=== PATIENT | male | born 1975 | race Caucasian/White ===

== ENCOUNTER 2020-12-03 13:23 | Inpatient (IN) | payer OTHER ==
[~2020-12-03] VITALS: Ht 170.2 cm; Wt 86.2 kg
[2020-12-03 13:32] VITALS: BP 147/85
[2020-12-03] MEDS ORDERED: COZAAR 25 MG TA25 M1 PO (13:35)
[2020-12-03 14:07] LABS: MCH 32.7 pg (26.0-34.0); MCHC 36.1 g/dL (28.0-37.0); MCV 90.4 fL (80.0-100.0); MPV 7.4 fl. (7.2-11.1); NUCLEATED RBCS 0 /100WBC; RBC 1.91 mil/uL (4.50-6.00); RDW-CV 14.4 % (10.5-14.5)
[2020-12-03 14:09] LABS: URINE BILIRUBIN NEGATIVE (Negative); URINE BLOOD NEGATIVE (Negative); URINE CLARITY CLEAR; URINE COLOR YELLOW; URINE GLUCOSE-RANDOM NEGATIVE (Negative); URINE KETONES NEGATIVE (Negative); URINE LEUKOCYTES-REFLEX NEGATIVE (Negative); URINE NITRITE-REFLEX NEGATIVE (Negative); URINE PROTEIN NEGATIVE (Negative); URINE SPECIFIC GRAVITY >= 1.030 (1.005-1.030); URINE UROBILINOGEN 0.2 E.U./dl (0.2-1.0)
[2020-12-03 14:10] LABS: WBC 1.8 thou/uL (4.0-11.0)
[2020-12-03 14:11] LABS: HEMOGLOBIN 6.2 gm/dL (14.0-18.0)
[2020-12-03 14:12] LABS: HEMATOCRIT 17.3 % (42.0-52.0)
[2020-12-03 14:13] LABS: PLATELET COUNT* 18 thou/uL (150-400)
[2020-12-03 14:18] LABS: CALCIUM 8.9 mg/dL (8.5-10.1); CREATININE 1.1 mg/dL (0.6-1.3); POTASSIUM 4.1 mmol/L (3.5-5.1)
[2020-12-03 14:22] LABS: APTT 22.1 Seconds (25.0-31.3); PROTIME 10.7 Seconds (9.20-11.50)
[2020-12-03 14:23] LABS: ALBUMIN 3.6 g/dL (3.4-5.0); TOTAL BILIRUBIN 0.2 mg/dL (<0.1-1.0); TOTAL PROTEIN 6.7 g/dL (6.4-8.2)
[2020-12-03 15:33] LABS: ABSOLUTE LYMPHOCYTES 1.4 thou/uL (0.8-5.3); ABSOLUTE NEUTROPHILS 0.3 thou/uL (1.6-8.1)
[2020-12-03 15:34] LABS: PLATELET ESTIMATE DECREASED
[2020-12-03 15:47] LABS: POLYCHROMASIA Occasional
[2020-12-03 15:48] LABS: MICROCYTES Occasional
[2020-12-03 17:29] VITALS: BP 120/66
[2020-12-03 20:00] VITALS: BP 103/56
[2020-12-03 21:28] VITALS: BP 107/60; BP 118/69; BP 99/58; BP 99/60
[2020-12-04] VITALS (15 sets, daily range): BP systolic 99–123; BP diastolic 56–75
[2020-12-04 04:34] LABS: MCH 31.7 pg (26.0-34.0); MCHC 35.4 g/dL (28.0-37.0); MCV 89.4 fL (80.0-100.0); MPV 7.8 fl. (7.2-11.1); RBC 2.19 mil/uL (4.50-6.00); RDW-CV 14.7 % (10.5-14.5); WBC 2.3 thou/uL (4.0-11.0)
[2020-12-04 04:59] LABS: HEMATOCRIT 19.6 % (42.0-52.0); HEMOGLOBIN 6.9 gm/dL (14.0-18.0)
[2020-12-04 13:58] LABS: ABSOLUTE LYMPHOCYTES 1.5 thou/uL (0.8-5.3); ABSOLUTE NEUTROPHILS 0.6 thou/uL (1.6-8.1); BASOPHILS 0.2 %; EOSINOPHILS 0.5 %; HEMATOCRIT 22.1 % (42.0-52.0); HEMOGLOBIN 7.8 gm/dL (14.0-18.0); LYMPHOCYTES 72.1 %; MCH 31.5 pg (26.0-34.0); MCHC 35.4 g/dL (28.0-37.0); MONOCYTES 0.7 %; MPV 7.4 fl. (7.2-11.1); NUCLEATED RBCS 0 /100WBC; POLYS 26.5 %; RBC 2.48 mil/uL (4.50-6.00); RDW-CV 14.7 % (10.5-14.5); WBC 2.1 thou/uL (4.0-11.0)
[2020-12-04 14:04] LABS: PLATELET COUNT* 45 thou/uL (150-400)
[2020-12-05 00:22] VITALS: BP 115/65
[2020-12-05 00:47] VITALS: BP 112/71
[2020-12-05 04:31] LABS: ABSOLUTE LYMPHOCYTES 1.8 thou/uL (0.8-5.3); ABSOLUTE NEUTROPHILS 0.6 thou/uL (1.6-8.1); BASOPHILS 0.3 %; EOSINOPHILS 0.6 %; HEMATOCRIT 21.1 % (42.0-52.0); HEMOGLOBIN 7.5 gm/dL (14.0-18.0); LYMPHOCYTES 74.1 %; MCH 31.7 pg (26.0-34.0); MCHC 35.7 g/dL (28.0-37.0); MCV 88.9 fL (80.0-100.0); MONOCYTES 0.7 %; MPV 7.3 fl. (7.2-11.1); NUCLEATED RBCS 0 /100WBC; POLYS 24.3 %; RBC 2.37 mil/uL (4.50-6.00); RDW-CV 14.3 % (10.5-14.5); WBC 2.4 thou/uL (4.0-11.0)
[2020-12-05 04:50] LABS: PLATELET COUNT* 40 thou/uL (150-400)
[2020-12-05 04:54] LABS: APTT 25.3 Seconds (25.0-31.3); PROTIME 10.4 Seconds (9.20-11.50)
[2020-12-05 05:03] LABS: ALBUMIN 3.1 g/dL (3.4-5.0); CALCIUM 8.3 mg/dL (8.5-10.1); CREATININE 1.1 mg/dL (0.6-1.3); PHOSPHORUS* 5.2 mg/dL (2.5-4.9); POTASSIUM 4.6 mmol/L (3.5-5.1); TOTAL BILIRUBIN 0.3 mg/dL (<0.1-1.0); TOTAL PROTEIN 6.1 g/dL (6.4-8.2)
[2020-12-05 05:19] LABS: % SATURATION 57 % (20-39); IRON 187 ug/dL (50-175)
[2020-12-05 07:50] VITALS: BP 111/72
[2020-12-05 12:52] VITALS: BP 119/78
[2020-12-05 17:43] VITALS: BP 133/89
== END 2020-12-05 18:48 | disposition short-term general hospital (02) | DRG 810 ==
LOC: M.ERS 13:23 → M.TBA-ER 14:14 → M.2W 14:14
PROVIDERS: Nurse Practitioner Family; ADMIT Internal Medicine; ATTEND Internal Medicine
DX: D61.818 Other pancytopenia (principal); Z20.822 Contact with and (suspected) exposure to COVID-19; D69.6 Thrombocytopenia, unspecified; D64.9 Anemia, unspecified; F10.10 Alcohol abuse, uncomplicated; I10 Essential (primary) hypertension; Z71.41 Alcohol abuse counseling and surveillance of alcoholic; R63.4 Abnormal weight loss; Z68.29 Body mass index [BMI] 29.0-29.9, adult